=== PATIENT | male | born 1990 | race Caucasian/White ===

== ENCOUNTER 2018-01-16 10:26 | Emergency (ER) | payer OTHER ==
[~2018-01-16] VITALS: Ht 182.9 cm; Wt 95.3 kg
--- NOTE | 2018-01-16 10:39 | Emergency Room Report ---
History of Present Illness General Chief Complaint: Earache Source: Patient Present Illness HPI 28YOM with left sided earache for 2 days No drainage No external ear pain No history of DM No sick contacts No recent flights No fever/chills Doesnt use qtips Allergies: Coded Allergies: No Known Allergies (Unverified , 01/16/18) Patient History Past Medical History: none Past Surgical History: none Pertinent Family History: none Social History: Denies: smoking, alcohol use, drug use Immunizations: UTD Reviewed Nursing Documentation: PMH: Agreed, PSxH: Agreed Review of Systems All Other Systems: negative except mentioned in HPI Physical Exam Sp02 EP Interpretation: reviewed, normal General Appearance: normal inspection, well appearing, no apparent distress, alert, GCS 15, non-toxic Head: normocephalic, atraumatic Eyes: bilateral eye PERRL, bilateral eye EOMI ENT: normal ENT inspection, hearing grossly normal, normal pharynx, no angioedema, normal voice, uvula midline, moist mucus membranes, other - bilateral cerumen. left ear top steep tender to otoscope, erythematous Neck: normal inspection, full range of motion, supple, thyroid normal, no meningismus, no bony tend Respiratory: normal inspection, lungs clear, normal breath sounds, no rhonchi, no respiratory distress, no retraction, no accessory muscle use, no wheezing, speaking full sentences Cardiovascular #1: regular rate, rhythm, no edema, no JVD, normal capillary refill Gastrointestinal: normal inspection, normal bowel sounds, non tender, soft, no mass, no peritonitis, non-distended, no guarding, no hernia, no pulsatile mass Genitourinary: no CVA tenderness Musculoskeletal: normal inspection, back normal, normal range of motion, no calf tenderness, pelvis stable, Wero's Sign negative Neurologic: normal inspection, alert, oriented x3, responsive, patient support specialist III-XII nml as tested, motor strength/tone normal, cerebellar normal, normal gait, speech normal Psychiatric: normal inspection, judgement/insight normal, mood/affect normal, no suicidal/homicidal ideation, no delusions Skin: normal inspection, normal color, no rash Lymphatic: normal inspection, no adenopathy Medical Decision Making Diagnostic Impression: Primary Impression: Otitis media Qualified Codes: H65.192 - Other acute nonsuppurative otitis media, left ear ER Course VSS, afebrile Left otitis media Bilateral cerumen ER course: Patient has remained stable during ED stay. Disposition: Patient is to be discharged to home. Prescriptions given are amoxicillin, debrox Patient is instructed to follow up with their primary care doctor within 5 days. Strict return precautions discussed with patient such as fever, chills, worsening/severe pain, nausea, vomiting, which may indicate severe illness. Patient verbalizes understanding and agrees with plan. Please note that this Emergency Department Report was dictated using [employer] tooler technology software, occasionally this can lead to erroneous entry secondary to interpretation by the dictation equipment Status: improved Disposition: HOME, SELF-CARE Scripts Carbamide Peroxide (DEBROX) 15 Ml Drops 5 DROP BOTH EARS TWICE A DAY for 4 Days, ML 0 Refills Prov: BRENDAN VELA M.D. 01/16/18 Amoxicillin* (AMOXIL*) 500 Mg Capsule 500 MG ORAL THREE TIMES A DAY for 7 Days, #21 CAP Prov: BRENDAN VELA M.D. 01/16/18 BRENDAN VELA M.D. Jan 16, 2018 10:39
[2018-01-16] MEDS ORDERED: DEBROX15 M1 BOTH EARS (10:44)
[2018-01-16] MEDS ORDERED: AMOXICILLIN500 MG ORAL (10:44)
[2018-01-16 10:48] VITALS: BP 122/73
== END 2018-01-16 10:48 | disposition home or self-care (01) ==
LOC: EMR 10:37
DX: H66.92 Otitis media, unspecified, left ear (principal); H61.23 Impacted cerumen, bilateral
CPT/HCPCS: 99284